=== PATIENT | female | born 1945 | race Caucasian/White ===

== ENCOUNTER 2016-09-02 15:45 | Inpatient (IN) | payer OTHER, MEDICARE ==
[~2016-09-02] VITALS: Ht 157.5 cm; Wt 51.9 kg
[2016-09-12] MEDS ORDERED: MULT-120 PO (10:15)
[2016-09-14] MEDS ORDERED: METOPROLOL TARTRATE 25 MG TAB PO PRN (06:30)
[2016-09-14] MEDS ORDERED: LACTATED RINGER'S 1000 ML IV SCH (06:30)
[2016-09-14] MEDS ORDERED: INSULIN HUMAN REGULAR 1,000 UNITS/10 ML VIAL SQ PRN (06:30)
[2016-09-14] MEDS ORDERED: SODIUM CHLORID 0.9% 500 ML IV SCH (06:30)
[2016-09-14 06:46] LABS: BLOOD, URINE TRACE (NEG); COMMENT (UR) CULT NOT INDICATED; CULTURE IF INDICATED CULT NOT INDICATED; GLUCOSE,URINE NEG (NEG); KETONE, URINE NEG (NEG); MUCUS URINE FEW /lpf (OCC); NITRITE,URINE NEG (NEG); PH, URINE 5.5 (5.0-8.5); SQUAMOUS EPITHELIAL CELL URINE <1 /hpf (0-5); URINE COLOR YELLOW (YELLW/STRAW)
[2016-09-14] MEDS ORDERED: SUGAMMADEX SODIUM 200 MG/2 ML VIAL IV PUSH ONE ×2 (06:51)
[2016-09-14] MEDS ORDERED: ceFAZolin 2 GM PREMIX 50 ML ONE (06:51)
[2016-09-14] MEDS ORDERED: ACETAMINOPHEN 1000 MG/100 ML VIAL IV ONE (06:51)
[2016-09-14 06:53] VITALS: BP 110/72; PULSE 74; RESP 16; TEMP 98; O2SAT 95
[2016-09-14] MEDS ORDERED: BUPIVACAINE LIPOSO PF 1.3% INJ 20 ML, DEXAMETHASONE INJ 4 MG in SODIUM CHLORIDE 0.9% IN... PERIART SCH (07:15)
[2016-09-14] MEDS ORDERED: ceFAZolin INJ 1,000 MG VIAL IV ONE (08:10)
[2016-09-14] MEDS ORDERED: ePHEDrine/NS 25 MG/5 ML SYR IV ONE (09:03)
[2016-09-14] MEDS ORDERED: LACTATED RINGER'S 1000 ML INJ 1,000 ML IV ONE (09:03)
[2016-09-14] MEDS ORDERED: PROPOFOL 200 MG/20 ML AMP IV ONE (09:03)
[2016-09-14] MEDS ORDERED: PHENYLEPH/NS 1000 MCG/10 ML SYR IV ONE (09:03)
[2016-09-14] MEDS ORDERED: MAGNESIUM HYDROXIDE SUSP 30 ML CUP PO PRN (10:45)
[2016-09-14] MEDS ORDERED: Post-op Orders (for Pharmacy) MISC OTHER ONE (10:45)
[2016-09-14] MEDS ORDERED: MORPHINE SULFATE 30 MG/30 ML PCA IV SCH (10:45)
[2016-09-14] MEDS ORDERED: ACETAMINOPHEN 325 MG TAB PO PRN (10:45)
[2016-09-14] MEDS ORDERED: SODIUM CHLORIDE 0.9% FLUSH 5 ML FLUSH IV FLUSH PRN (10:45)
[2016-09-14] MEDS ORDERED: NALOXONE HCL 0.4 MG/ML AMP IV PRN (10:45)
[2016-09-14] MEDS ORDERED: RESP: ALBUTEROL 2.5 MG/3 ML NEB (PRN) NEB (10:45)
[2016-09-14] MEDS ORDERED: ONDANSETRON HCL 4 MG/2 ML VIAL IV PUSH PRN (10:45)
[2016-09-14] MEDS ORDERED: DO NOT ADM ANY ANTICOAGULANT DRUGS XX PRN (11:00)
[2016-09-14] MEDS: LACTATED RINGER'S 1000 ML INJ 1,000 ML IV SCH (11:05)
[2016-09-14] MEDS ORDERED: MIDAZOLAM HCL 2 MG/2 ML VIAL ONE (11:07)
[2016-09-14] MEDS ORDERED: fentaNYL CITRATE 250 MCG/5 ML AMP ONE (11:07)
[2016-09-14] MEDS ORDERED: MORPHINE SULFATE 4 MG/ML INJ ONE (11:07)
[2016-09-14] MEDS ORDERED: KETOROLAC TROMETHAMINE 30 MG/ML (IVP) VIAL ONE (11:40)
[2016-09-14] MEDS ORDERED: *morphine SULFATE 8 MG/ML PERIprocedure ONLY ONE (11:41)
[2016-09-14] MEDS: KETOROLAC TROMETHAMINE 30 MG/ML (IVP) VIAL IV PUSH SCH ×2 (11:58→17:57)
[2016-09-14] MEDS: ACETAMINOPHEN 1000 MG/100 ML VIAL IV SCH ×2 (11:59→17:56)
--- NOTE | 2016-09-14 12:13 | RADRPT ---
EXAM DATE/TIME: 09/14/2016 11:30 [facility] COMPARISON: No previous studies available for comparison. INDICATIONS : S/P Thoracotomy MEDICAL HISTORY : Unobtainable SURGICAL HISTORY : Unobtainable ENCOUNTER: Subsequent ACUITY: 3 days PAIN SCORE: 5/10 LOCATION: Bilateral chest FINDINGS: There is a right-sided chest tube in place. There is a small pneumothorax seen over the medial right upper lung measuring 1 cm. Subcutaneous air is seen on the right side. The heart size is normal. The lungs demonstrate underlying diffuse increased interstitial markings. Clips are seen in the left axillary region. A significant effusion is not seen. CONCLUSION: 1. Right-sided chest tube with a minimal pneumothorax seen at the superior medial right upper lung. 2. Diffuse interstitial prominence. Prior films are unavailable. This could be from mild underlyin g edema versus chronic interstitial disease. Dax Hunter MD on September 14, 2016 at 12:02 Board Certified Radiologist. This report was verified electronically.
[2016-09-14 12:25] VITALS: BP 81/51; PULSE 71; RESP 18; TEMP 97.8; O2SAT 98
--- NOTE | 2016-09-14 12:40 | PD.OP ---
cc: Jamie Cornejo MD; Luis Harrington MD; Deloris Puentes MD Operative Report Date of Surgery: Sep 14, 2016 Preoperative Diagnosis: Postoperative Diagnosis: Procedure: 1. Right Posterolateral Muscle Sparing Thoracotomy 2. Right Lower Lobectomy 3. Mediastinal Lymph Node Dissection 4. Lysis of Adhesions 5. Intercostal Nerve Block . Surgeon: Luis Harrington Project Administrator(s): Coco Olivera Operation and Findings: PREOPERATIVE DIAGNOSIS 1. Large Right Lower Lobe Lung Cancer 2. Breast Cancer s/p Mastectomy 3. COPD POSTOPERATIVE DIAGNOSIS same PROCEDURES 1. Right Posterolateral Muscle Sparing Thoracotomy 2. Right Lower Lobectomy 3. Mediastinal Lymph Node Dissection 4. Lysis of Adhesions 5. Intercostal Nerve Block SURGEON Luis Harrington MD POLICE SERGEANT Kimberley Olivera, [facility] General endotracheal. THREAD TRIMMER NICK López MD OPERATIVE TIME Please see record. COMPLICATIONS None. INDICATION FOR PROCEDURE The patient is a 70 yo lady with a large right lower lobe lung cancer presenting for right thoracotomy and lobectomy. DESCRIPTION OF PROCEDURE The patient was brought to the operating suite and placed in supine position. Following satisfactory induction of general double-lumen endotracheal anesthesia , the patient was placed in the left lateral decubitus position. The right chest and surrounding area was then prepped and draped in the usual sterile fashion. A standard muscle-sparing posterolateral thoracotomy was performed and the serratus anterior muscle spared. The pleural space was entered in the 5th ICS. Exploration of the chest revealed a very large right lower lobe mass encompassing the majority of the lower lobe with adhesions to the lateral chest wall, presumably from the site of the percutaneous biopsy. The adhesions were divided carefully and the lung freed circumferentially. The inferior pulmonary ligament was divided. The pulmonary arterial supply to the lower lobe was identified, dissected free and divided as was the pulmonary venous supply. The bronchus was then dissected free, clamped and the remaining lung was insufflated without any difficulty. Lymph node dissections of level 4, 7, 8, 10 and 11 were performed along with the course of this removal. Some of these were retained with the specimen. Specimen was removed from the chest. Frozen section analysis was consistent with a clear resection margin. At this point the closure was undertaken. A 24-Togolese Kt drain was placed. Intercostal nerve block was performed at the level of the incision and 3 rib spaces above and below using Exparel with Decadron solution. The pericostal space was approximated with interrupted #1 Vicryl sutures in a pericostal fashion. The serratus fascia and Latissimus dorsi were closed with running 0-Vicryl and the remaining wounds closed with 3-0, and 4-0 Monocryl. The patient tolerated the procedure well and postoperatively went to the PACU in stable condition. Luis Harrington MD Sep 14, 2016 12:40
[2016-09-14] MEDS: PCA - TOTAL MG MORPHINE DELIVERED PER SHIFT SCH ×2 (14:00→22:00)
[2016-09-14 15:00] VITALS: BP 104/63; PULSE 70; RESP 18; TEMP 97.9; O2SAT 97
[2016-09-14 15:23] VITALS: O2SAT 98
[2016-09-14] MEDS: RESP: ALBUTEROL 2.5 MG/3 ML NEB (SCH) NEB ×2 (15:23→22:02)
[2016-09-14 20:00] VITALS: BP 117/62; PULSE 61; RESP 24; TEMP 97.5; O2SAT 98
[2016-09-14] MEDS ORDERED: DOCUSATE CALCIUM 240 MG CAP PO SCH (21:00)
[2016-09-14] MEDS: PANTOPRAZOLE SOD 40 MG DELAYED RELEASE TAB PO SCH (21:05)
[2016-09-14] MEDS: SODIUM CHLORIDE 0.9% FLUSH 5 ML FLUSH IV FLUSH SCH (21:06)
[2016-09-14 22:02] VITALS: O2SAT 98
[2016-09-15] VITALS (15 sets, daily range): BP systolic 101–138; BP diastolic 60–98; PULSE 55–87; RESP 14–24; TEMP 97.8–98.7; O2SAT 95–100
[2016-09-15] MEDS: ACETAMINOPHEN 1000 MG/100 ML VIAL IV SCH ×2 (00:06→05:18)
[2016-09-15] MEDS: KETOROLAC TROMETHAMINE 30 MG/ML (IVP) VIAL IV PUSH SCH ×2 (00:07→05:18)
[2016-09-15 04:05] LABS: AUTOMATED NEUTROPHIL # 7.2 TH/MM3 (1.8-7.7); BASOPHIL % 0.1 % (0.0-2.0); EOSINOPHIL % 0.1 % (0.0-4.0); HEMATOCRIT 29.5 % (35.0-46.0); HEMO FLAGS DIFF FINAL; LYMPH % 13.6 % (9.0-44.0); LYMPHOCYTE # 1.2 TH/MM3 (1.0-4.8); MEAN CELL VOLUME 90.6 FL (80.0-100.0); MEAN CORPUSCULAR HEMOGLOBIN 30.7 PG (27.0-34.0); MEAN CORPUSCULAR HGB CONC 33.9 % (32.0-36.0); MONO % 7.4 % (0.0-8.0); NEUT % 78.8 % (16.0-70.0); PLATELET COUNT 272 TH/MM3 (150-450); RED BLOOD COUNT 3.26 MIL/MM3 (4.00-5.30); RED CELL DISTRIBUTION WIDTH 13.4 % (11.6-17.2); WHITE BLOOD COUNT 9.2 TH/MM3 (4.0-11.0)
[2016-09-15 04:24] LABS: BICARBONATE 27.8 MEQ/L (21.0-32.0); POTASSIUM 4.2 MEQ/L (3.5-5.1)
[2016-09-15] MEDS: PCA - TOTAL MG MORPHINE DELIVERED PER SHIFT SCH ×2 (05:19→14:00)
--- NOTE | 2016-09-15 05:32 | RADRPT ---
EXAM DATE/TIME: 09/15/2016 03:37 [facility] COMPARISON: CHEST SINGLE AP, September 14, 2016, 11:30. INDICATIONS : Shortness of breath, possible pulmonary disease. MEDICAL HISTORY : None. SURGICAL HISTORY : Thoracotomy ENCOUNTER: Subsequent ACUITY: 2 days PAIN SCORE: 5/10 LOCATION: Right chest FINDINGS: Single AP view of the chest. Right-sided chest tube remains in place. Subcutaneous emphysema again se en on the right. No pneumothorax identified on the current study. Patchy opacity in the right lung ba se again seen and demonstrates mild increase. CONCLUSION: 1. Right-sided chest tube remains in place. Right pneumothorax no longer seen. 2. Patchy right lung base atelectasis versus consolidation. Kaleb Narayan MD on September 15, 2016 at 5:29 Board Certified Radiologist. This report was verified electronically.
[2016-09-15] MEDS: RESP: ALBUTEROL 2.5 MG/3 ML NEB (SCH) NEB ×3 (09:19→21:03)
[2016-09-15] MEDS ORDERED: POLYETHYLENE GLYCOL 17 GM PKG PO SCH (11:15)
--- NOTE | 2016-09-15 11:15 | PD.CAR.PN ---
CVT Progress Note Subjective/Hospital Course: 70/ female hx 1. Large Right Lower Lobe Lung Cancer 2. Breast Cancer s/p Mastectomy 3. COPD 09/14 surgery 1. Right Posterolateral Muscle Sparing Thoracotomy 2. Right Lower Lobectomy 3. Mediastinal Lymph Node Dissection 4. Lysis of Adhesions 09/15 doing well , pain controlled with clipper operator chest tube drained 80cc/ 12 hrs, additional 80cc since ambulating this am will transfer to stepdown Objective: GENERAL: SKIN: Warm and dry./ incision intact right chest wall HEAD: Normocephalic. EYES: No scleral icterus. No injection or drainage. NECK: Supple, trachea midline. No JVD or lymphadenopathy. CARDIOVASCULAR: Regular rate and rhythm without murmurs, gallops, or rubs. RESPIRATORY: Breath sounds equal bilaterally. No accessory muscle use. chest tube to wall suction, no air leak GASTROINTESTINAL: Abdomen soft, non-tender, nondistended. MUSCULOSKELETAL: No cyanosis, or edema. BACK: Nontender without obvious deformity. No CVA tenderness. Vital Signs Date Time Temp Pulse Resp B/P Pulse Ox O2 Delivery O2 Flow Rate FiO2 09/15/16 07:30 98 Nasal Cannula 2.00 09/15/16 07:30 98.5 59 18 103/67 98 09/15/16 07:30 59 09/15/16 07:23 97 Nasal Cannula 2.00 09/15/16 05:19 22 09/15/16 04:00 55 09/15/16 04:00 99 Nasal Cannula 2.00 09/15/16 04:00 98.1 55 24 101/60 99 09/15/16 01:10 22 09/15/16 00:40 22 09/15/16 00:00 87 09/15/16 00:00 98.0 87 24 123/98 98 Arterial Line 09/15/16 00:00 98 Nasal Cannula 2.00 09/14/16 22:02 98 Nasal Cannula 2.00 09/14/16 22:00 24 09/14/16 20:00 61 09/14/16 20:00 98 Nasal Cannula 2.00 09/14/16 20:00 97.5 61 24 117/62 98 Arterial Line 09/14/16 16:00 98 Nasal Cannula 2.00 09/14/16 15:23 98 Nasal Cannula 2.00 09/14/16 15:00 70 09/14/16 15:00 97.9 70 18 104/63 97 09/14/16 14:00 18 09/14/16 12:30 98 Nasal Cannula 2.00 09/14/16 12:25 97.8 71 18 81/51 98 09/14/16 12:25 98 Nasal Cannula 3.00 09/14/16 12:15 97.7 71 14 94/54 97 Nasal Cannula 3 09/14/16 12:00 71 14 103/59 96 Nasal Cannula 3 09/14/16 11:45 72 14 106/58 98 Nasal Cannula 3 09/14/16 11:30 77 16 110/65 97 Nasal Cannula 3 115/75 09/14/16 11:15 73 16 114/64 98 Nasal Cannula 3 122/61 Labs: Laboratory Tests Test 09/15/16 03:08 White Blood Count 9.2 TH/MM3 (4.0-11.0) Red Blood Count 3.26 MIL/MM3 (4.00-5.30) Hemoglobin 10.0 GM/DL (11.6-15.3) Hematocrit 29.5 % (35.0-46.0) Mean Corpuscular Volume 90.6 FL (80.0-100.0) Mean Corpuscular Hemoglobin 30.7 PG (27.0-34.0) Mean Corpuscular Hemoglobin 33.9 % Concent (32.0-36.0) Red Cell Distribution Width 13.4 % (11.6-17.2) Platelet Count 272 TH/MM3 (150-450) Mean Platelet Volume 7.5 FL (7.0-11.0) Neutrophils (%) (Auto) 78.8 % (16.0-70.0) Lymphocytes (%) (Auto) 13.6 % (9.0-44.0) Monocytes (%) (Auto) 7.4 % (0.0-8.0) Eosinophils (%) (Auto) 0.1 % (0.0-4.0) Basophils (%) (Auto) 0.1 % (0.0-2.0) Neutrophils # (Auto) 7.2 TH/MM3 (1.8-7.7) Lymphocytes # (Auto) 1.2 TH/MM3 (1.0-4.8) Monocytes # (Auto) 0.7 TH/MM3 (0-0.9) Eosinophils # (Auto) 0.0 TH/MM3 (0-0.4) Basophils # (Auto) 0.0 TH/MM3 (0-0.2) CBC Comment DIFF FINAL Differential Comment Sodium Level 137 MEQ/L (136-145) Potassium Level 4.2 MEQ/L (3.5-5.1) Chloride Level 99 MEQ/L (98-107) Carbon Dioxide Level 27.8 MEQ/L (21.0-32.0) Anion Gap 10 MEQ/L (5-15) Blood Urea Nitrogen 11 MG/DL (7-18) Creatinine 0.49 MG/DL (0.50-1.00) Estimat Glomerular Filtration 125 ML/MIN Rate (>89) Random Glucose 141 MG/DL (74-106) Calcium Level 8.5 MG/DL (8.5-10.1) Result Diagram: 09/15/1630709/15/16307 Telemetry: NSR (1) right lower lung ca (2) Right Posterolateral Muscle Sparing Thoracotomy Plan: leave chest tube in pulm toileting OOB, pain control await path (3) Hx of breast cancer Melissa Gale Sep 15, 2016 11:15
[2016-09-15] MEDS: LACTATED RINGER'S 1000 ML INJ 1,000 ML IV SCH (11:45)
[2016-09-15] MEDS: ACETAMINOPHEN/HYDROcodone 325 MG/5 MG TAB PO PRN ×3 (14:07→20:38)
[2016-09-15] MEDS: DOCUSATE SODIUM 100 MG CAP PO SCH ×2 (14:15→20:38)
[2016-09-15] MEDS: SODIUM CHLORIDE 0.9% FLUSH 5 ML FLUSH IV FLUSH SCH ×2 (14:16→21:00)
[2016-09-15] MEDS: PANTOPRAZOLE SOD 40 MG DELAYED RELEASE TAB PO SCH (20:38)
[2016-09-16] VITALS (16 sets, daily range): BP systolic 122–155; BP diastolic 72–86; PULSE 60–86; RESP 14–18; TEMP 98.2–98.7; O2SAT 83–97
[2016-09-16] MEDS: ACETAMINOPHEN/HYDROcodone 325 MG/5 MG TAB PO PRN ×4 (00:28→12:55)
[2016-09-16] MEDS: RESP: ALBUTEROL 2.5 MG/3 ML NEB (SCH) NEB ×3 (04:04→15:28)
--- NOTE | 2016-09-16 07:10 | RADRPT ---
EXAM DATE/TIME: 09/16/2016 06:07 [facility] COMPARISON: CHEST SINGLE AP, September 15, 2016, 3:37. INDICATIONS : Post thoracotomy. MEDICAL HISTORY : None. SURGICAL HISTORY : Thoracotomy. ENCOUNTER: Subsequent ACUITY: 3 days PAIN SCORE: Non-responsive. LOCATION: Bilateral chest FINDINGS: Subcutaneous emphysema on the right has not changed. Chest tube is present on the right side. No defi nite pneumothorax is seen for technique. There is improvement in the aeration of the right lung, lainez elfego slight degree of consolidation and/or collapse in the right lower lung remains medially. The rest of the examination has not significantly changed. CONCLUSION: Slight improvement in the aeration of right lung. Stoney Contreras MD on September 16, 2016 at 7:07 Board Certified Radiologist. This report was verified electronically.
[2016-09-16] MEDS: DOCUSATE SODIUM 100 MG CAP PO SCH (08:41)
[2016-09-16] MEDS: SODIUM CHLORIDE 0.9% FLUSH 5 ML FLUSH IV FLUSH SCH (09:00)
[2016-09-16] MEDS ORDERED: DOCU1CAP39 PO (13:31)
--- NOTE | 2016-09-16 13:37 | HHI.DS ---
Discharge Summary Admission Date Sep 14, 2016 at 05:27 Discharge Date: Sep 16, 2016 Admitting Diagnosis lung mass (1) Right Posterolateral Muscle Sparing Thoracotomy Diagnosis: Secondary (2) right lower lung ca Diagnosis: Principal Procedures 09/14 1. Right Posterolateral Muscle Sparing Thoracotomy 2. Right Lower Lobectomy 3. Mediastinal Lymph Node Dissection 4. Lysis of Adhesions 5. Intercostal Nerve Block Brief History 1. Large Right Lower Lobe Lung Cancer 2. Breast Cancer s/p Mastectomy 3. COPD 09/14 surgery 1. Right Posterolateral Muscle Sparing Thoracotomy 2. Right Lower Lobectomy 3. Mediastinal Lymph Node Dissection 4. Lysis of Adhesions CBC/BMP: 09/15/16 0308 09/15/16 0308 Significant Findings Laboratory Tests Test 09/14/16 09/15/16 06:20 03:08 Urine Occult Blood TRACE (NEG) Urine Leukocyte Esterase TRACE (NEG) Urine Mucus FEW /lpf (OCC) Red Blood Count 3.26 MIL/MM3 (4.00-5.30) Hemoglobin 10.0 GM/DL (11.6-15.3) Hematocrit 29.5 % (35.0-46.0) Neutrophils (%) (Auto) 78.8 % (16.0-70.0) Creatinine 0.49 MG/DL (0.50-1.00) Random Glucose 141 MG/DL (74-106) Imaging Last Impressions Chest X-Ray 09/16/16 0500 Signed Impressions: Service Date/Time: Friday, September 16, 2016 06:07 - CONCLUSION: Slight improvement in the aeration of right lung. Stoney Contreras MD PE at Discharge GENERAL: SKIN: Warm and dry./ incision intact left posterolateral chest wall, dressing over chest tube historic sites supervisor: Normocephalic. EYES: No scleral icterus. No injection or drainage. NECK: Supple, trachea midline. No JVD or lymphadenopathy. CARDIOVASCULAR: Regular rate and rhythm without murmurs, gallops, or rubs. RESPIRATORY: Breath sounds equal bilaterally. No accessory muscle use. GASTROINTESTINAL: Abdomen soft, non-tender, nondistended. MUSCULOSKELETAL: No cyanosis, or edema. BACK: Nontender without obvious deformity. No CVA tenderness. Hospital Course 09/14 surgery 1. Right Posterolateral Muscle Sparing Thoracotomy 2. Right Lower Lobectomy 3. Mediastinal Lymph Node Dissection 4. Lysis of Adhesions 09/15 doing well , pain controlled with educational coordinator chest tube drained 80cc/ 12 hrs, additional 80cc since ambulating this am will transfer to stepdown 09/16 chest tube removed without difficulty3 + BM, pain controlled on room air will dc home f/u with oncologist Dr Cornejo also eval with Dr Jeanna Ellis Pt Condition on Discharge: Good Discharge Disposition: Discharge Home Discharge Instructions DIET: Follow Instructions for: As Tolerated, No Restrictions Activities you can perform: Shower Only-No Bath Activities to avoid: Strenuous Activity, Driving Additional Activity Instructio: no lifting > 8lbs or gallon of milk Follow up Referrals: Appointment for Follow Up Oncology - 3 Weeks with Jeanna Esteves MD PCP Follow-up Pulmonology Surgical New Medications: Docusate Sodium (Dok) 100 Mg Cap 100 MG PO BID Constipation #30 CAP Continued Medications: Multiple Vitamins W/ Minerals (Multivitamin Women) 1 Tab Tab 1 TAB PO DAILY Nutritional Supplement Ref 0 TAB Melissa Gale Sep 16, 2016 13:37
--- NOTE | 2016-09-16 14:26 | RADRPT ---
EXAM DATE/TIME: 09/16/2016 13:49 [facility] COMPARISON: CHEST SINGLE AP, September 16, 2016, 6:07. INDICATIONS : Evaluate heart and lungs post chest tube removal. MEDICAL HISTORY : None. SURGICAL HISTORY : Right lower lobectomy. ENCOUNTER: Subsequent ACUITY: 2 days PAIN SCORE: 0/10 LOCATION: chest FINDINGS: A single portable frontal view of the chest shows interval removal of the right thoracostomy tube. Ti ny apical pneumothorax is observed. Consolidation is small within the medial right lung base. Left enrique ng is clear. Heart enlarged but unchanged. A scoliotic spine is observed. CONCLUSION: 1. Right thoracostomy tube removal. 2. New tiny right apical pneumothorax. 3. Mild right basilar atelectasis. Henry Suresh Jr., MD on September 16, 2016 at 14:22 Board Certified Radiologist. This report was verified electronically.
== END 2016-09-16 16:18 | disposition home or self-care (01) | DRG 165 ==
LOC: HSDI 09-14 05:27 → HCVR 09-14 12:32 → HCIN 09-15 14:24
PROVIDERS: ADMIT Thoracic Surgery (Cardiothoracic Vascular Surgery); ATTEND Thoracic Surgery (Cardiothoracic Vascular Surgery)
PROC: 07B70ZX Excision of Thorax Lymphatic, Open Approach, Diagnostic (ICD-10-PCS; 2016-09-14)
PROC: 3E0T3CZ (ICD-10-PCS; 2016-09-14)
PROC: 0BTF0ZZ Resection of Right Lower Lung Lobe, Open Approach (ICD-10-PCS; principal; 2016-09-14 07:31)
DX: C34.31 Malignant neoplasm of lower lobe, right bronchus or lung (principal); J44.9 Chronic obstructive pulmonary disease, unspecified; F17.210 Nicotine dependence, cigarettes, uncomplicated; Z80.1 Family history of malignant neoplasm of trachea, bronchus and lung; Z80.3 Family history of malignant neoplasm of breast; Z85.3 Personal history of malignant neoplasm of breast; Z90.12 Acquired absence of left breast and nipple
CPT/HCPCS: 36430; 71010; 80048; 81001; 85025; 86850; 86900; 86901; 86920; 88305; 88307; 88309; 88331; 94150; 94640; 94664; J0131; J0690; J1885; J2250; J2270; J2370; J2405; J3010; J7120; J7613; P9016